=== PATIENT | female | born 1950 | race Caucasian/White ===

== ENCOUNTER → 2023-11-11 11:27 | Outpatient (REF) | payer OTHER, SELFPAY | LOC: HWRAD 11:27 | PROVIDERS: ATTENDING PHYSICIAN Family Medicine | DX: J18.9 Pneumonia, unspecified organism (principal) | CPT/HCPCS: 71046 ==

== ENCOUNTER → 2024-01-25 11:07 | Outpatient (REF) | payer OTHER, SELFPAY | LOC: RAD 11:07 | PROVIDERS: ATTENDING PHYSICIAN Internal Medicine Rheumatology; FAMILY PHYSICIAN Family Medicine | DX: M54.50 Low back pain, unspecified (principal); M81.0 Age-related osteoporosis without current pathological fracture | CPT/HCPCS: 72100 ==

== ENCOUNTER → 2024-06-30 11:41 | Outpatient (REF) | payer OTHER, SELFPAY | LOC: WDC 11:41 | PROVIDERS: ATTENDING PHYSICIAN Family Medicine | DX: Z12.31 Encounter for screening mammogram for malignant neoplasm of breast (principal) | CPT/HCPCS: 77063; 77067 ==

== ENCOUNTER 2024-09-05 09:56 | Outpatient (RCR) | payer OTHER, SELFPAY | END 2024-09-05 23:59 | disposition home or self-care (01) | LOC: RPT 09:56 | PROVIDERS: ATTENDING PHYSICIAN Internal Medicine Rheumatology; FAMILY PHYSICIAN Family Medicine | DX: M54.59 Other low back pain (principal); Z73.6 Limitation of activities due to disability; M62.81 Muscle weakness (generalized); R20.2 Paresthesia of skin; R20.0 Anesthesia of skin | CPT/HCPCS: 97110; 97112; 97162 ==

== ENCOUNTER 2024-09-22 12:50 | Outpatient (RCR) | payer OTHER, SELFPAY | END 2024-09-22 23:59 | disposition home or self-care (01) | LOC: RPT 12:50 | PROVIDERS: ATTENDING PHYSICIAN Internal Medicine Rheumatology; FAMILY PHYSICIAN Family Medicine | DX: M54.59 Other low back pain (principal); Z73.6 Limitation of activities due to disability; M62.81 Muscle weakness (generalized); R20.2 Paresthesia of skin; R20.0 Anesthesia of skin; M54.2 Cervicalgia | CPT/HCPCS: 97110; 97112 ==

== ENCOUNTER → 2024-12-06 12:52 | Outpatient (REF) | payer OTHER, SELFPAY | LOC: RAD 12:52 | PROVIDERS: ATTENDING PHYSICIAN Internal Medicine Rheumatology; FAMILY PHYSICIAN Family Medicine | DX: M81.0 Age-related osteoporosis without current pathological fracture (principal); Z13.820 Encounter for screening for osteoporosis | CPT/HCPCS: 77080 ==

== ENCOUNTER 2025-02-12 09:15 | Emergency (ER) | payer OTHER, SELFPAY ==
[2025-02-12 09:22] VITALS: BP 132/82
[2025-02-12 10:42] VITALS: BMI 28.2
[2025-02-12 10:51] LABS: % Basophils 0.5 % (0-2); % Eosinophils 1.3 % (0-6); % Immature Granulocytes 0.3 % (0-0.5); % Lymphocytes 26.3 % (20.5-51.1); % Monocytes 5.9 % (1.7-9.3); % Neutrophils 65.7 % (42.2-75.2); Absolute Eosinophils 0.1 10^3/uL (0-0.7); Absolute Lymphocytes 1.7 10^3/uL (1.2-3.4); Absolute Monocytes 0.4 10^3/uL (0.1-0.6); Absolute Neutrophils 4.1 10^3/uL (1.4-6.5); Hematocrit 38.3 % (37.0-47.0); Hemoglobin 13.4 g/dL (12.0-16.0); Mean Corpuscular Hgb 30.8 pg (27.0-31.0); Mean Platelet Volume 9.1 fL (7.4-10.4); Nucleated Red Blood Cells % 0 %; Platelet Count 197 10^3/uL (130-400); Red Blood Cell Count 4.35 10^6/uL (4.20-5.40); Red Cell Dist. Width 13.1 % (11.5-14.5); White Blood Cell Count 6.3 10^3/uL (4.8-10.8)
[2025-02-12 11:05] LABS: Lactic Acid 0.7 mmol/L (0.7-2.0)
[2025-02-12 11:13] LABS: ALT (SGPT) 18 U/L (0-35); AST (SGOT) 24 U/L (14-36); Albumin 4.5 g/dl (3.5-5.0); Alkaline Phosphatase 50 U/L (38-126); Blood Urea Nitrogen 10 mg/dl (7-17); Calcium 9.4 mg/dl (8.4-10.2); Carbon Dioxide 26 mmol/L (22-30); Chloride 109 mmol/L (98-107); Creatine Phosphokinase 51 U/L (30-135); Estimated Creatinine Clearance 81 ml/min; Glucose 102 mg/dl (70-99); Potassium 4.1 mmol/L (3.5-5.1); Sodium 141 mmol/L (135-145); Total Bilirubin 1.1 mg/dl (0.2-1.3); Total Protein 6.8 g/dl (6.3-8.2); eGFR > 60.00
[2025-02-12 11:22] LABS: NT-proBNP 289 pg/ml
[2025-02-12 11:45] LABS: TSH Reflex To Free T4 0.83 uIU/ml (0.47-4.68)
--- NOTE | 2025-02-12 12:10 | ED.GENMED ---
History of Present Illness
<Nataliia Paula PA-C - Last Filed: 02/12/25 17:13>
General
Chief Complaint: Skin Problem
Source: patient
Exam Limitations: none
Time Seen by Provider: 02/12/25 10:08
Nursing documentation reviewed up to this point in time: agreed with
History of Present Illness
History of Present Illness:
74 y/o F with h/o IBS, RA on methotrexate
says 3 mo ago she had a punch biopsy of a lesion on her RLE and 'it never healed right'
pt says she has a dark scab at the site that has been there for months
it is painful sometimes
she also has noticed some intermittent edema in her R ankle but then started having some swelling in L ankle as well
she has had trouble healing wounds previously
nevr seen vascular
has some pain at night in both of her LE but not worse with walking or exertion
she has no color change, paresthesias, foot drop, cp, sob
the reason she is here today is because she has started worrying maybe she had a blood clot
saw her pcp 6+ weeks ago and had round of abx for the wound not healing
she says she ahd a reaction, thinking maybe to the keflex but also was on plaquenil briefly then too and isn't sure what did it
she went back on MTX weekly
Past History
<Nataliia Paual PA-C - Last Filed: 02/12/25 17:13>
Past History
ED Past Medical History: Hypothyroidism
ED Past Surgical History: Gynecological (Tubal ligation )
Social History
Tobacco: Non-smoker
Personal:
Living: with family
Employment: Employed
Family History
Family History: Other (No significant); Negative Hypertension or Early CAD
Review of Systems
<MARIVEL Vazquez Last Filed: 02/12/25 17:13>
Review of Systems
Allergies reviewed?: Yes
All Other Systems: Not applicable
Phy Exam
<Nataliia Paula PA-C - Last Filed: 02/12/25 17:13>
Physical Exam
Physical Exam:
GENERAL: Alert , in no apparent distress
EYE: pupils equal and reactive
NECK: Supple
ENT: o/p clr, mmm.
CARDIAC: Regular rate and rhythm . very subtle swelling R ankle nonpitting; no appreciated L ankle edema
LUNGS: Clear breath sounds bilaterally, no acute respiratory distress, no wheezes/rales/rhonchi
ABDOMEN: Soft, without focal tenderness, no r/g, no cvat, normal bowel sounds
NEUROLOGICAL: Alert and oriented, no focal neuro deficits,
SKIN: Warm and dry,
slight hyperpigmetnation b/l LE anteriorly c/w mild PVD
righ tmedial lower leg with a 1 x 0.5 cm blackened scab that has no surrounding erythema; mild tenderness but no significant swelling or induration
MUSCULOSKELETAL: faint R edema, well perfused. neg erika's sign
normal ROM of legs/ankles/knees
PSYCH: Normal and appropriate interaction.
Course
<Nataliia Paula PA-C - Last Filed: 02/12/25 17:13>
Orders/Labs/Results
Orders:
Orders
02/12/25 10:25
CR Chest - 2 Views Urgent
Comment:
Reason For Exam: b/l leg swelling
Venous Doppler Lwr Ext Rt [US Periph Venous LOWER Ext RT] Urgent
Comment:
Reason For Exam: R leg swelling
02/12/25 10:42
CPK [Creatine Phosphokinase] Urgent
Comprehensive Metabolic Panel Urgent
TSH Reflex To Free T4 Urgent
Blood Culture Urgent
GUALBERTO Source: Blood/Venous
Specimen Description:
02/12/25 10:43
Complete Blood Count/With Diff Urgent
Lactic Acid Urgent
NT-proBNP Urgent
02/12/25 10:44
Blood Culture Urgent
GUALBERTO Source: Blood/Venous
Specimen Description:
Abnormal Lab Results
02/12/25
10:42
Chloride 109 H mmol/L
(98-107)
Glucose 102 H mg/dl
(70-99)
02/12/25 10:43
02/12/25 10:42
Vital Signs
Initial and Last Documented VS:
Initial Vital Signs
Temp Pulse Resp BP Pulse Ox
36.5 C 79 16 132/82 100
02/12/25 09:22 02/12/25 09:22 02/12/25 09:22 02/12/25 09:22 02/12/25 09:22
Last Documented Vital Signs
Temp Pulse Resp BP Pulse Ox
36.5 C 62 17 134/71 99
02/12/25 09:22 02/12/25 12:12 02/12/25 12:12 02/12/25 12:12 02/12/25 12:12
<Rob Waite MD - Last Filed: 02/12/25 12:45>
Orders/Labs/Results
Orders:
Orders
02/12/25 10:25
CR Chest - 2 Views Urgent
Comment:
Reason For Exam: b/l leg swelling
Venous Doppler Lwr Ext Rt [US Periph Venous LOWER Ext RT] Urgent
Comment:
Reason For Exam: R leg swelling
02/12/25 10:42
CPK [Creatine Phosphokinase] Urgent
Comprehensive Metabolic Panel Urgent
TSH Reflex To Free T4 Urgent
Blood Culture Urgent
GUALBERTO Source: Blood/Venous
Specimen Description:
02/12/25 10:43
Complete Blood Count/With Diff Urgent
Lactic Acid Urgent
NT-proBNP Urgent
02/12/25 10:44
Blood Culture Urgent
GUALBERTO Source: Blood/Venous
Specimen Description:
Abnormal Lab Results
02/12/25
10:42
Chloride 109 H mmol/L
(98-107)
Glucose 102 H mg/dl
(70-99)
02/12/25 10:43
02/12/25 10:42
Vital Signs
Initial and Last Documented VS:
Initial Vital Signs
Temp Pulse Resp BP Pulse Ox
36.5 C 79 16 132/82 100
02/12/25 09:22 02/12/25 09:22 02/12/25 09:22 02/12/25 09:22 02/12/25 09:22
Last Documented Vital Signs
Temp Pulse Resp BP Pulse Ox
36.5 C 62 17 134/71 99
02/12/25 09:22 02/12/25 12:12 02/12/25 12:12 02/12/25 12:12 02/12/25 12:12
<Nataliia Paula PA-C - Last Filed: 02/12/25 17:13>
MDM/Problems Addressed
Differential Diagnosis Includes:
dvt, chf, abscess, PVD
MDM/Problems Addressed:
74 y/o F
3 mo ago had a mole or lesions removed from R lower leg and it has not healed all the way, with blackened scab to the area with some localized pain
aready had abx and didn't really help
but now pt thinks both legs are a ltitle swollen at times
more so the R ankle
normal pulse, perfused
could have some mild PVD skin changes
US showed no DVT but localized small fluid collection could be seroma, which makes more sense since no fever, no surrounding changes and normal wbc
but d/w dr waite who saw pt and felt best to cover with abx
f/u with wound center
<Nataliia Paula PA-C - Last Filed: 02/12/25 17:13>
*Critical Care Note
Total Time (30-74mins, 75-104mins- exclusive of procedures): Not Applicable
ED Attending Note
<Nataliia Paula PA-C - Last Filed: 02/12/25 17:13>
-
Portions of this chart may have been created with voice recognition software.� Occasional wrong word or��sound alike� substitutions may have occurred due to the inherent limitations of voice recognition software.
<Rob Waite MD - Last Filed: 02/12/25 12:45>
ED Attending Note
Patient seen and examined by attending physician: Yes
I performed the substantive portion of visit, reviewed & personally made and approve the management plan that is documented in note by myself or NIKOLAI.: Yes
ED Attending Note:
74-year-old female with a punch biopsy to the right leg about 2 months ago. Was initially on some Keflex. Concerned with swelling in the leg and concerned about a blood clot. No chest pain shortness of breath or other complaints. She is on
immunosuppressive meds. No drainage no erythema.
On exam patient is nontoxic in no distress. Leg is grossly normal. Very minimal swelling. No significant pitting. Good distal pulses and color. There is a small scab to the right lower medial leg with very minimal tenderness. No erythema no
drainage no fluctuance noted. Small area of hardness noted at this site
Labs are stable. Ultrasound is negative except for a very tiny fluid collection.
Impression is poorly healing ongoing wound to the lower extremity. Possibly related to her immunosuppressive meds and would not be surprised if she has some mild venous insufficiency. However she is got no acute vascular issues. No obvious
significant infectious issues. No DVT. With this small fluid collection we will start antibiotics and topical Bactroban. No indication for drainage at this time.
Discharge Plan
Departure
Patient Disposition: Home (Routine Discharge)
Date of Disposition: 06/08/25
Time of Disposition: 12:23
Patient with high blood pressure during this ER visit?: No
Condition: Fair
Covid-19: Not Applicable
Discharge Problem:
Wound seroma, Edema leg
Instructions: Wound Care ([place]), [facility]
Prescriptions:
New
doxycycline hyclate 100 mg capsule
100 mg PO BID Qty: 14 0RF
mupirocin [Centany] 2 % ointment
1 applic topical BID 7 Days Qty: 15 0RF
No Action
levothyroxine 112 MCG tablet
112 mcg PO DAILY
salmon oil-omega-3 fatty acids 500 MG capsule
1 cap PO TID
CALCIUM 600+D SOFTGEL
3 cap PO DAILY
Vitamin D
1 tab PO DAILY
Referrals:
Venus Lucas MD [Active, Vascular Surgery] - Follow up in 5-7 days
Lobo Frias MD [Family Provider, Family Practice]
Activity Restrictions/Additional Instructions:
There was no sign of a blood clot in your leg however you do have a little area measuring about 1 cm x 0.8 cm of fluid around the site of the wound that you have on your right lower extremity. We are treating this with topical antibiotics and oral
antibiotics however this could just be a collection of normal fluid that is not infected. You should follow-up with the wound care center, call for an appointment. You also may have some venous insufficiency and you can see a vascular specialist
for this, call for an appointment. You might want to consider wearing compression stockings during the day and removing them at night.
Return for worsening swelling, redness, fever, pain, foot drop, numbness, color change, cold foot or any concerns
Interventions
Interventions:
*Risk Screen - Suicide Last Done: 02/12/25 10:40
*General Assessment Last Done: 02/12/25 10:40
*Neglect/Abuse Screening Last Done: 02/12/25 10:40
*ED COVID-19 Vaccine History Last Done: 02/12/25 10:40
*Nursing Disposition Last Done: 02/12/25 13:12
ED-Skin Assessment Last Done: 02/12/25 10:43
Discharge Date and Time
Discharge Date/Time: 02/12/25 13:12
Print Language: UKRAINIAN
[2025-02-12 12:12] VITALS: BP 134/71
== END 2025-02-12 13:12 | disposition home or self-care (01) ==
LOC: EMR 09:15
PROVIDERS: Emergency Medicine; Physician Assistant; EMERGENCY PHYSICIAN Emergency Medicine; FAMILY PHYSICIAN Family Medicine
DX: L76.34 Postprocedural seroma of skin and subcutaneous tissue following other procedure (principal); R60.0 Localized edema; K58.9 Irritable bowel syndrome, unspecified; M06.9 Rheumatoid arthritis, unspecified; E03.9 Hypothyroidism, unspecified; Z79.631 Long term (current) use of antimetabolite agent; Z98.51 Tubal ligation status
CPT/HCPCS: 99284; 71046; 80053; 82550; 83605; 83880; 84443; 85025; 87040; 93971

== ENCOUNTER → 2025-02-25 06:26 | Outpatient (REF) | payer OTHER, SELFPAY | LOC: MRI 06:26 | PROVIDERS: ATTENDING PHYSICIAN Internal Medicine Rheumatology; FAMILY PHYSICIAN Family Medicine | DX: M25.50 Pain in unspecified joint (principal); M54.50 Low back pain, unspecified | CPT/HCPCS: 72148 ==

== ENCOUNTER → 2025-03-06 09:27 | Outpatient (REF) | payer OTHER, SELFPAY | LOC: MRI 3T 09:27 | PROVIDERS: ATTENDING PHYSICIAN Internal Medicine Rheumatology; FAMILY PHYSICIAN Family Medicine | DX: M54.50 Low back pain, unspecified (principal) | CPT/HCPCS: 72146 ==